=== PATIENT | male | born 2000 | race Caucasian/White ===

== ENCOUNTER 2019-12-28 19:33 | Emergency (ER) | payer MEDICAID ==
[~2019-12-28] VITALS: Ht 167.6 cm; Wt 70.3 kg
[2019-12-28 19:45] VITALS: Ht 167.6 cm; Wt 70.3 kg
[2019-12-28 22:05] VITALS: BP 117/76
== END 2019-12-28 22:05 | disposition home or self-care (01) ==
LOC: ED 19:33
DX: T65.891A Toxic effect of other specified substances, accidental (unintentional), initial encounter (principal); H92.03 Otalgia, bilateral; Y92.89 Other specified places as the place of occurrence of the external cause